=== PATIENT | female | born 1955 | race Caucasian/White ===

== ENCOUNTER → 2021-05-23 | Outpatient (CLI) | payer MEDICARE ==
--- NOTE | 2021-05-23 18:01 | KCIC ---
EXAMINATION: MRI RIGHT LOWER EXTREMITY JOINT WITHOUT INDICATIONS: Chronic right knee pain, injured 2 weeks. TECHNIQUE: Multiplanar multisequence MRI of the right knee was obtained without contrast. COMPARISON: None. FINDINGS: MENISCI: Complex tear of the lateral meniscus extending from the posterior root into the anterior ho rn with increased signal extending to the inferior and inner surface. Complex, predominantly horizont al tear of the posterior horn and body medial meniscus with increased signal extending into the poste rior root. These are likely degenerative. LIGAMENTS: Complete rupture of anterior cruciate ligament. The posterior cruciate ligament is intact . Medial collateral ligament and lateral collateral complex are intact. EXTENSOR MECHANISM: The quadriceps and patellar tendons are intact. Fat pads are normal. Retinacula are intact. BONES AND CARTILAGE: There are contusions in the lateral femoral condyle and lateral tibial plateau. No acute fracture. There is deep partial and full-thickness cartilage loss throughout the weightbear ing lateral compartment with small subchondral cysts and degenerative remodeling of the articular zack face of the lateral femoral condyle. Predominantly superficial partial-thickness cartilage loss in th e medial compartment. Superficial and deep partial-thickness cartilage loss in the patellofemoral com partment. There are tricompartment osteophytes, greatest in the lateral compartment. OTHER: Large joint effusion. Large multilobulated Lira cyst. Remaining muscles and tendons are inta ct. Mild subcutaneous edema. IMPRESSION: 1. Acute rupture of the anterior cruciate ligament with contusions in the lateral femoral condyle and lateral tibial plateau. 2. Medial and lateral meniscus tears. 3. Tricompartmental cartilage loss, greatest in the lateral compartment where there is deep partial a nd full-thickness cartilage loss. 4. Large joint effusion and large Lira cyst. Electronically signed by: Sandi Heaton MD (05/23/2021 5:59 PM) [place] [id number]
== END ==
LOC: KCIC MRI 13:57
PROVIDERS: ATTEND Hospitalist
DX: S83.271A Complex tear of lateral meniscus, current injury, right knee, initial encounter (principal); S83.241A Other tear of medial meniscus, current injury, right knee, initial encounter; S83.511A Sprain of anterior cruciate ligament of right knee, initial encounter; M25.461 Effusion, right knee; M71.21 Synovial cyst of popliteal space [Baker], right knee; M25.761 Osteophyte, right knee; R60.9 Edema, unspecified; X58.XXXA Exposure to other specified factors, initial encounter; Y93.89 Activity, other specified; Y92.89 Other specified places as the place of occurrence of the external cause; Y99.8 Other external cause status
CPT/HCPCS: 73721